=== PATIENT | male | born 1985 | race Caucasian/White ===

== ENCOUNTER 2017-01-18 20:10 | Emergency (ER) | payer BC ==
[~2017-01-18] VITALS: Ht 188 cm; Wt 104.3 kg
[2017-01-18] MEDS ORDERED: LIDO:MAALOX:DONNATAL 1:1:1 15 ML SINGLE DOSE SWSW ONE (21:00)
[2017-01-18] MEDS ORDERED: FAMOTIDINE 20 MG/2 ML VIAL IVP ONE (21:30)
--- NOTE | 2017-01-18 21:38 | PHYS DOC ---
Past Medical History Past Medical History: No Pertinent History Past Surgical History: Appendectomy Alcohol Use: Heavy Drug Use: Marijuana Adult General Chief Complaint Chief Complaint: ABDOMINAL PAIN HPI HPI 31-year-old male presenting to the emergency department today with feeling lightheaded throughout the day with epigastric abdominal pain and chest pain. He describes the pain as a burning sensation. It radiates up into his chest. No alleviating or exacerbating factors. No specific timing. It occurs throughout the day. It is been present for approximately 24 hours. He denies nausea or diaphoresis. He denies a strong family history of heart disease. He denies high cholesterol and diabetes. Review of systems is negative for hemoptysis, unilateral leg swelling, recent immobilization, recent surgery, personal or family history of blood clotting disorders. All other review of systems is negative unless otherwise noted in history of present illness. Review of Systems Review of Systems SEE ABOVE Current Medications Current Medications Current Medications Medications (Trade) Dose Ordered Sig/Delonte Start Time Stop Time Status Last Admin Dose Admin Famotidine (Pepcid) 20 mg 1X ONCE 01/18/17 21:30 01/18/17 21:31 DC 01/18/17 21:42 20 MG Multi-Ingredient Mouthwash/Gargle (Gi Cocktail Single Dose) 15 ml 1X ONCE 01/18/17 21:00 01/18/17 21:01 DC 01/18/17 21:19 15 ML Allergies Allergies Allergies Coded Allergies Type Severity Reaction Last Updated Verified No Known Drug Allergies 01/18/17 No Physical Exam Physical Exam Orthostatic vital signs obtained. Unremarkable. Constitutional: Well developed, well nourished, no acute distress, non-toxic appearance. HENT: Normocephalic, atraumatic, bilateral external ears normal, oropharynx moist, no oral exudates, nose normal. [] Eyes: PERRLA, EOMI, conjunctiva normal, no discharge. Neck: Normal range of motion, no tenderness, supple, no stridor. [] Cardiovascular:Heart rate regular rhythm, no murmur Lungs & Thorax: Bilateral breath sounds clear to auscultation [] Abdomen: Bowel sounds normal, soft, no tenderness, no masses, no pulsatile masses. Skin: Warm, dry, no erythema, no rash. [] Back: No tenderness, no CVA tenderness. [] Extremities: No tenderness, no cyanosis, no clubbing, ROM intact, no edema. Neurologic: Alert and oriented X 3, normal motor function, normal sensory function, no focal deficits noted. [] Psychologic: Affect normal, judgement normal, mood normal. [] Current Patient Data Vital Signs Vital Signs Date Time Temp Pulse Resp B/P Pulse Ox O2 Delivery O2 Flow Rate FiO2 01/18/17 21:19 94 21 128/89 96 Room Air 01/18/17 20:23 97.9 97.9 EKG EKG [] Radiology/Procedures Radiology/Procedures Chest x-ray reviewed by myself shows no obvious infiltrate or pneumothorax. Course & Med Decision Making Course & Med Decision Making Pertinent Labs and Imaging studies reviewed. (See chart for details) [] 31-year-old male presenting to the emergency Department with chest pain. EKG unremarkable. Vital signs afebrile. Saturating well. Physical exam shows a nontender abdomen. Nontender gallbladder. Negative McBurney's point. Well- appearing individual. Orthostatics unremarkable. Patient given GI cocktail. Mild improvement in pain. Chest x-ray unremarkable. Patient was chest pain-free in the emergency department. He was asymptomatic in the emergency department. Patient subsequent discharged home to follow up with PCP over the next 2-3 days. Dragon Disclaimer Dragon Disclaimer This electronic medical record was generated, in whole or in part, using a voice recognition dictation system. Departure Departure Impression: Primary Impression: Chest pain Additional Impressions: Epigastric abdominal pain Dizziness Disposition: 01 HOME, SELF-CARE Condition: STABLE Referrals: NO PCP (PCP) FLOWER MIRELES MD Patient Instructions: Chest Pain (Nonspecific), Dizziness Additional Instructions: Thank you for allowing us to participate in your care today. Followup with your primary care physician in 3 days if your symptoms do not improve. If you do not have a primary care provider you can ask for a list of our primary care providers. Return to the emergency department you have any new or concerning findings. This should be evaluated by the primary care physician and any necessary consulting services for continued management within a few days after discharge. Return to emergency room if you have any new or concerning symptoms including but not limited to fever, chills, nausea, vomiting, intractable pain, any new rashes, chest pain, shortness of air, uncontrolled bleeding, difficulty breathing, and/or vision loss. Problem Qualifiers VERN HENNING MD Jan 18, 2017 21:38
[2017-01-18 23:04] VITALS: BP 132/87
--- NOTE | 2017-01-19 07:47 | RAD ---
Indication chest pain. PA and lateral views of the chest were obtained. No prior imaging is available. The heart and pulmonary vessels appear normal. The lungs are clear. There is no pleural fluid or pneumothorax. IMPRESSION: Normal study
--- NOTE | 2017-01-19 09:13 | EKG ---
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
== END 2017-01-18 23:30 | disposition home or self-care (01) ==
LOC: ER 20:10
DX: R07.9 Chest pain, unspecified (principal); R10.13 Epigastric pain; R42 Dizziness and giddiness; F12.10 Cannabis abuse, uncomplicated; Z90.49 Acquired absence of other specified parts of digestive tract
CPT/HCPCS: 71020; 93005; 96374; 99284; S0028